=== PATIENT | female | born 1990 | race Caucasian/White ===

== ENCOUNTER → 2021-01-02 | Outpatient (CLI) | payer OTHER ==
--- NOTE | 2021-01-02 14:11 | ECGEPIP ---
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
== END ==
LOC: M EKG 12:49
PROVIDERS: ATTEND Surgery
DX: Z01.818 Encounter for other preprocedural examination (principal)

== ENCOUNTER 2022-02-12 10:41 | Emergency (ER) | payer OTHER ==
[~2022-02-12] VITALS: Ht 165.1 cm; Wt 75.0 kg
[2022-02-12] MEDS ORDERED: HYDR12.55 (10:57)
[2022-02-12] MEDS ORDERED: GLUC1KIT (10:57)
[2022-02-12] MEDS ORDERED: NOVOINJ3 (10:57)
[2022-02-12] MEDS ORDERED: LANTINJ4 (10:57)
[2022-02-12] MEDS ORDERED: NS 1,000 ML IV ONE (11:40)
[2022-02-12 11:55] LABS: BASO % 0.3 % (0.0-1.0); EOS % 0.1 % (0.0-3.0); HEMATOCRIT 38.5 % (36.0-47.0); HEMOGLOBIN 12.9 g/dl (12.0-15.5); LYMPH # 1.1 10^3/uL (1.5-5.0); LYMPH % 12.6 % (24.0-44.0); MEAN CORPUSCULAR HEMOGLOBIN 35.1 pg (27.0-33.0); MEAN CORPUSCULAR HGB CONC 33.5 g/dl (32.0-36.5); MEAN CORPUSCULAR VOLUME 104.6 fl (80.0-96.0); MONO # 1.1 10^3/uL (0.0-0.8); MONO % 11.7 % (2.0-8.0); NEUTROPHILS # 6.8 10^3/uL (1.5-8.5); PLATELET COUNT, AUTOMATED 219 10^3/uL (150-450); RED BLOOD COUNT 3.68 10^6/uL (4.00-5.40)
[2022-02-12 12:35] LABS: BLOOD UREA NITROGEN 6 MG/DL (7-18); CALCIUM LEVEL 8.5 MG/DL (8.5-10.1); CARBON DIOXIDE LEVEL 23 MEQ/L (21-32); CHLORIDE LEVEL 100 MEQ/L (98-107); GLOMERULAR FILTRATION RATE > 60.0 (>60); GLUCOSE, FASTING 243 MG/DL (70-100); POTASSIUM SERUM 5.2 MEQ/L (3.5-5.1); SODIUM LEVEL 131 MEQ/L (136-145)
[2022-02-12 13:02] LABS: OSMOLALITY SERUM 274 MOSM/KG (275-295)
[2022-02-12 13:12] LABS: PHOSPHORUS LEVEL 3.6 MG/DL (2.5-4.9)
[2022-02-12 13:13] LABS: ACETONE/KETONE 8.75 MG/DL (<2.81); MAGNESIUM LEVEL 1.9 MG/DL (1.8-2.4)
[2022-02-12 13:37] LABS: ABG BASE EXCESS -3.6 (-2.0-2.0); ABG HCO3 20.3 MEQ/L (22.0-26.0); ABG O2 SATURATION 97.3 % (95.0-99.0); ABG PARTIAL PRESSURE CO2 33.1 mmHg (35.0-45.0); ABG PARTIAL PRESSURE O2 95.5 mmHg (75.0-100.0); ABG STANDARD HCO3 21.5 MEQ/L (22.0-26.0); ABG TOTAL CO2 21.3 MEQ/L (22.0-29.0); ABG pH (ARTERIAL) 7.405 UNITS (7.350-7.450)
[2022-02-12 14:35] VITALS: BP 104/66
[2022-02-13] MEDS ORDERED: ONDA4TAB6 PO (10:23)
[2022-02-13] MEDS ORDERED: CEFD300C PO (10:29)
== END 2022-02-12 14:48 | disposition home or self-care (01) ==
LOC: M ED 10:41
DX: U07.1 COVID-19 (principal); E10.65 Type 1 diabetes mellitus with hyperglycemia; D69.3 Immune thrombocytopenic purpura; Z79.899 Other long term (current) drug therapy; Z79.4 Long term (current) use of insulin; F17.210 Nicotine dependence, cigarettes, uncomplicated

== ENCOUNTER 2022-11-23 22:37 | Emergency (ER) | payer OTHER ==
[~2022-11-23] VITALS: Ht 167.6 cm; Wt 70.5 kg
[~2022-11-23 22:37] MED LIST: CEFD300C PO; GLUC1KIT; HYDR12.55; LANTINJ4; NOVOINJ3; ONDA4TAB6 PO
[2022-11-23] MEDS ORDERED: LAMO100T3 (22:49)
[2022-11-23] MEDS ORDERED: BUSP15TA47 (22:49)
[2022-11-23] MEDS ORDERED: ESCITALOPRAM PO (22:49)
[2022-11-23] MEDS ORDERED: TRAZ-257 PO (22:49)
[2022-11-24] MEDS ORDERED: NS 1,000 ML IV ONE (03:20)
[2022-11-24] MEDS ORDERED: AMPICILLIN SOD/SULBACTAM SOD 3 GM in D5W MINI-BAG PLUS 100 ML IV ONE (03:20)
[2022-11-24] MEDS ORDERED: KETOROLAC 30 MG/ML 1ML VIAL IV ONE (03:20)
[2022-11-24 04:14] LABS: VENOUS BASE EXCESS 2.7 (-2.0-2.0); VENOUS HCO3 28.1 MMOL/L (23.0-27.0); VENOUS O2 SATURATION 67.7 % (60.0-80.0); VENOUS PARTIAL PRESSURE O2 33.7 mmHg (30.0-50.0); VENOUS PH 7.404 UNITS (7.330-7.430); VENOUS TOTAL CO2 29.5 MMOL/L (24.0-28.0)
[2022-11-24 04:22] LABS: BASO % 0.2 % (0.0-1.0); EOS % 0.1 % (0.0-3.0); HEMATOCRIT 42.1 % (36.0-47.0); HEMOGLOBIN 14.4 g/dl (12.0-15.5); LYMPH # 1.8 10^3/uL (1.5-5.0); LYMPH % 13.5 % (24.0-44.0); MEAN CORPUSCULAR HEMOGLOBIN 35.3 pg (27.0-33.0); MEAN CORPUSCULAR HGB CONC 34.2 g/dl (32.0-36.5); MEAN CORPUSCULAR VOLUME 103.2 fl (80.0-96.0); MONO # 1.1 10^3/uL (0.0-0.8); MONO % 8.1 % (2.0-8.0); NEUTROPHILS # 10.4 10^3/uL (1.5-8.5); NEUTROPHILS % 77.7 % (36.0-66.0); PLATELET COUNT, AUTOMATED 262 10^3/uL (150-450); RED BLOOD COUNT 4.08 10^6/uL (4.00-5.40); WHITE BLOOD COUNT 13.4 10^3/uL (4.0-10.0)
[2022-11-24 04:35] LABS: OSMOLALITY SERUM 278 MOSM/KG (275-295)
[2022-11-24 04:36] LABS: HCG, SERUM QUALITATIVE NEGATIVE (NEGATIVE)
[2022-11-24 04:43] LABS: LIPASE 21 U/L (12-53)
[2022-11-24 04:56] LABS: ALKALINE PHOSPHATASE 62 U/L (46-116); ALT/SGPT 18 U/L (7.0-40); AST/SGOT 20 U/L (<34); BILIRUBIN,DIRECT 0.1 MG/DL (<0.4); BILIRUBIN,TOTAL 0.3 MG/DL (0.3-1.2); BLOOD UREA NITROGEN < 5 MG/DL (9-23); CALCIUM LEVEL 9.1 MG/DL (8.5-10.1); CARBON DIOXIDE LEVEL 29 MMOL/L (20-31); CHLORIDE LEVEL 98 MMOL/L (98-107); CREATININE FOR GFR 0.77 MG/DL (0.55-1.30); GLOMERULAR FILTRATION RATE > 60.0 (>60); GLUCOSE, FASTING 152 MG/DL (60-100); POTASSIUM SERUM 3.6 MMOL/L (3.5-5.1); SODIUM LEVEL 134 MMOL/L (136-145); TOTAL PROTEIN 7.1 G/DL (5.7-8.2)
[2022-11-24] MEDS ORDERED: AUGM500T34 PO (06:03)
[2022-11-24 06:26] VITALS: BP 108/71
[2022-11-24] MEDS ORDERED: ONDA4TAB6 PO (07:01)
== END 2022-11-24 07:05 | disposition home or self-care (01) ==
LOC: M ED 22:37
DX: K08.89 Other specified disorders of teeth and supporting structures (principal); E10.65 Type 1 diabetes mellitus with hyperglycemia; F17.200 Nicotine dependence, unspecified, uncomplicated; F10.10 Alcohol abuse, uncomplicated; Z79.4 Long term (current) use of insulin; Z79.83 Long term (current) use of bisphosphonates; Z79.2 Long term (current) use of antibiotics; Z79.899 Other long term (current) drug therapy
CPT/HCPCS: 80047; 80048; 80076; 82010; 82803; 83036; 83690; 83930; 84703; 85025; 87040; 87635; 93005; 93041; 94760; 96361; 96374; 96375; 99284; J0295; J1885

== ENCOUNTER → 2023-01-22 | Outpatient (REF) | payer OTHER ==
[~2023-01-22] MED LIST changes: +AUGM500T34 PO; +BUSP15TA47; +ESCITALOPRAM PO; +LAMO100T3; +TRAZ-257 PO
[2023-01-22 21:20] LABS: GC DNA AMPLIFICATION NEGATIVE (NEGATIVE)
== END ==
LOC: M WUC 19:13
PROVIDERS: ATTEND Nurse Practitioner Family
DX: N89.8 Other specified noninflammatory disorders of vagina (principal); Z11.3 Encounter for screening for infections with a predominantly sexual mode of transmission; R30.0 Dysuria

== ENCOUNTER 2025-03-19 16:43 | Emergency (ER) | payer OTHER ==
[~2025-03-19] VITALS: Ht 165.1 cm; Wt 78.7 kg
[~2025-03-19 16:43] MED LIST changes: +ACET-907 PO; +BACT800T5 PO; -BUSP15TA47; +BUSP15TA47 PO; +CEPH500C; +CYAN100049; +FLUC150T9; +GABA-1171 PO; -GLUC1KIT; +GLUC1VIA14; -LAMO100T3; +LAMO100T3 PO; -LANTINJ4; +LANTINJ4 INJ; +LEXA1TAB PO; +MELO15TA28 PO; -NOVOINJ3; +NOVOINJ3 INJ; +ONDA-282; +ONDA-282 PO; -ONDA4TAB6 PO; +TRAZ-252 PO; +VITA500054 PO
[2025-03-19 21:40] LABS: BASO # 0.0 10^3/uL (0.0-0.2); BASO % 0.3 % (0.0-1.0); EOS # 0.1 10^3/uL (0.0-0.5); EOS % 0.4 % (0.0-3.0); LYMPH # 2.9 10^3/uL (1.5-5.0); LYMPH % 21.8 % (24.0-44.0); MONO # 0.9 10^3/uL (0.0-0.8); MONO % 6.9 % (2.0-8.0); NEUTROPHILS # 9.4 10^3/uL (1.5-8.5); NEUTROPHILS % 70.2 % (36.0-66.0); PLATELET COUNT, AUTOMATED 271 10^3/uL (150-450)
[2025-03-19 21:44] LABS: ERYTHROCYTE SEDIMENTATION RATE 2 mm/hr (0-20)
[2025-03-19 22:04] LABS: C REACTIVE PROTEIN QUANTITATIV < 0.50 MG/DL (<1.0); CALCIUM LEVEL 9.0 MG/DL (8.5-10.1); CARBON DIOXIDE LEVEL 29 MMOL/L (20-31); CHLORIDE LEVEL 101 MMOL/L (98-107); CREATININE FOR GFR 0.67 MG/DL (0.55-1.30); GLOMERULAR FILTRATION RATE > 90.0 (>60); POTASSIUM SERUM 4.0 MMOL/L (3.5-5.1); SODIUM LEVEL 140 MMOL/L (136-145)
[2025-03-19 22:37] VITALS: BP 148/77; TEMP 98.6; O2SAT 98
[2025-03-19] MEDS ORDERED: PERC5TAB12 PO (22:56)
== END 2025-03-19 23:05 | disposition home or self-care (01) ==
LOC: M ED 16:43
DX: M72.9 Fibroblastic disorder, unspecified (principal); G89.18 Other acute postprocedural pain; M79.671 Pain in right foot; E11.9 Type 2 diabetes mellitus without complications; Z79.1 Long term (current) use of non-steroidal anti-inflammatories (NSAID); Z79.4 Long term (current) use of insulin; Z79.899 Other long term (current) drug therapy